=== PATIENT | male | born 1975 | race Caucasian/White ===

== ENCOUNTER 2021-10-02 15:45 | Inpatient (IN) | payer MEDICAID ==
[2021-10-02] MEDS ORDERED: LORazepam 1 MG Tab PO ONE ×3 (15:50→16:37)
--- NOTE | 2021-10-02 15:56 | EDM.PDOC ---
ED HPI GENERAL MEDICAL PROBLEM - General Chief Complaint: General Stated Complaint: MEDICAL VIA [facility] Time Seen by Provider: 10/02/21 15:45 Source of Information: Reports: Patient, EMS History Limitations: Reports: No Limitations - History of Present Illness INITIAL COMMENTS - FREE TEXT/NARRATIVE: 46 yo male is brought to the ER from [facility] after he developed a panic attack with hyperventilation as he was being discharged. No tx per EMS en route. Has been drinking a lot of water lately. Onset: Today, Sudden Onset Date: 10/02/21 Duration: Minutes: Location: Reports: Generalized Quality: Reports: Other (none) Severity: Moderate Improves with: Reports: Other (nothing tried) Worsens with: Reports: Other (unknown) Context: Reports: Other (See HPI) Associated Symptoms: Reports: Shortness of Breath, Other (anxiety) Treatments [employer]GER: Reports: Other (see below) (none) - Related Data Allergies Allergy/AdvReac Type Severity Reaction Status Date / Time fluoxetine AdvReac Other Verified 10/04/21 15:22 Home Meds: Home Meds lisinopriL [Lisinopril] 20 mg PO DAILY 10/02/21 [History] Past Medical History Cardiovascular History: Reports: Heart Murmur Gastrointestinal History: Reports: GERD Musculoskeletal History: Reports: Back Pain, Chronic Neurological History: Reports: Head Trauma Psychiatric History: Reports: Addiction, Hallucinations (Secondary alcohol) Endocrine/Metabolic History: Reports: Hypothyroidism ED ROS GENERAL - Review of Systems Review Of Systems: See Below Constitutional: Reports: No Symptoms HEENT: Reports: No Symptoms Respiratory: Reports: Shortness of Breath Cardiovascular: Reports: No Symptoms GI/Abdominal: Reports: No Symptoms : Reports: No Symptoms Musculoskeletal: Reports: No Symptoms Skin: Reports: No Symptoms Neurological: Reports: No Symptoms Psychiatric: Reports: Anxiety ED EXAM, GENERAL - Physical Exam Exam: See Below Exam Limited By: No Limitations General Appearance: Alert, WD/WN, Mild Distress Eye Exam: Bilateral Eye: Normal Inspection Ears: Normal External Exam, Normal Canal, Hearing Grossly Normal Ear Exam: Bilateral Ear: Auricle Normal, Canal Normal Nose: Normal Inspection, No Blood Throat/Mouth: Normal Inspection, Normal Lips, Normal Oropharynx, Normal Voice, No Airway Compromise Head: Atraumatic, Normocephalic Neck: Normal Inspection Respiratory/Chest: Lungs Clear, Normal Breath Sounds, No Accessory Muscle Use, Chest Non-Tender, Other (tachypnea) Cardiovascular: Regular Rate, Rhythm, No Edema GI/Abdominal: Normal Bowel Sounds, Soft, Non-Tender, No Distention. No: Distended Back Exam: Normal Inspection. No: CVA Tenderness (R), CVA Tenderness (L) Extremities: Normal Inspection, Normal Range of Motion, Non-Tender, No Pedal Edema Neurological: Alert, Oriented, CN II-XII Intact, Normal Cognition, No Motor/Sensory Deficits Psychiatric: Normal Affect, Normal Mood Skin Exam: Warm, Dry, Intact, Normal Color, No Rash #1 Interpretation EKG Date: 10/02/21 Time: 16:40 Rhythm: NSR Rate (Beats/Min): 89 P-Wave: Present ST-T: Normal Comparison: NA - No Prior EKG Course - Vital Signs Text/Narrative:: Dr. Barry called @ 1520h Last Recorded V/S: Last Vital Signs Temp 36.6 C 10/04/21 07:44 Pulse 60 10/04/21 07:44 Resp 12 10/04/21 07:44 BP 130/82 10/04/21 07:44 Pulse Ox 98 10/04/21 07:44 - Orders/Labs/Meds Labs: Laboratory Tests 10/02/21 10/02/21 10/02/21 Range/Units 16:25 16:25 16:25 WBC 9.2 (4.5-11.0) K/uL RBC 4.08 L (4.30-5.90) M/uL Hgb 12.8 (12.0-15.0) g/dL Hct 36.5 L (40.0-54.0) % MCV 90 (80-98) fL MCH 31 (27-31) pg MCHC 35 (32-36) % Plt Count 265 (150-400) K/uL VBG pH (7.350-7.450) Sodium 119 L* (140-148) mmol/L Potassium 3.7 (3.6-5.2) mmol/L Chloride 85 L (100-108) mmol/L Carbon Dioxide 16 L (21-32) mmol/L Anion Gap 21.7 H (5.0-14.0) mmol/L BUN 10 (7-18) mg/dL Creatinine 1.0 (0.8-1.3) mg/dL Est Cr Clr Drug Dosing 93.28 mL/min Estimated GFR (MDRD) > 60 (>60) Glucose 104 (74-106) mg/dL Lactic Acid (0.4-2.0) mmol/L Calcium 8.0 L (8.5-10.1) mg/dL Magnesium (1.8-2.4) mg/dL Total Bilirubin (0.2-1.0) mg/dL Direct Bilirubin (0.0-0.2) mg/dL Indirect Bilirubin AST (15-37) U/L ALT (12-78) U/L Alkaline Phosphatase (46-116) U/L Total Protein (6.4-8.2) g/dL Albumin (3.4-5.0) g/dL Globulin (2.3-3.5) g/dL Albumin/Globulin Ratio (1.2-2.2) Urine Color (YELLOW) Urine Appearance (CLEAR) Urine pH (5.0-8.0) Ur Specific [place] (1.008-1.030) Urine Protein (NEGATIVE) mg/dL Urine Glucose (UA) (NEGATIVE) mg/dL Urine Ketones (NEGATIVE) mg/dL Urine Occult Blood (NEGATIVE) Urine Nitrite (NEGATIVE) Urine Bilirubin (NEGATIVE) Urine Urobilinogen (0.2-1.0) EU/dL Ur Leukocyte Esterase (NEGATIVE) Urine RBC (0-5) Urine WBC (0-5) Ur Epithelial Cells Amorphous Sediment Urine Bacteria Urine Mucus Salicylates 0.7 L (2.0-20.0) mg/dL 10/02/21 10/02/21 10/02/21 Range/Units 16:25 16:25 16:25 WBC (4.5-11.0) K/uL RBC (4.30-5.90) M/uL Hgb (12.0-15.0) g/dL Hct (40.0-54.0) % MCV (80-98) fL MCH (27-31) pg MCHC (32-36) % Plt Count (150-400) K/uL VBG pH (7.350-7.450) Sodium (140-148) mmol/L Potassium (3.6-5.2) mmol/L Chloride (100-108) mmol/L Carbon Dioxide (21-32) mmol/L Anion Gap (5.0-14.0) mmol/L BUN (7-18) mg/dL Creatinine (0.8-1.3) mg/dL Est Cr Clr Drug Dosing mL/min Estimated GFR (MDRD) (>60) Glucose (74-106) mg/dL Lactic Acid 5.1 H (0.4-2.0) mmol/L Calcium (8.5-10.1) mg/dL Magnesium 0.8 L (1.8-2.4) mg/dL Total Bilirubin 0.4 D (0.2-1.0) mg/dL Direct Bilirubin 0.14 (0.0-0.2) mg/dL Indirect Bilirubin 0.26 AST 28 D (15-37) U/L ALT 37 (12-78) U/L Alkaline Phosphatase 53 (46-116) U/L Total Protein 6.9 (6.4-8.2) g/dL Albumin 4.1 (3.4-5.0) g/dL Globulin 2.8 (2.3-3.5) g/dL Albumin/Globulin Ratio 1.5 (1.2-2.2) Urine Color (YELLOW) Urine Appearance (CLEAR) Urine pH (5.0-8.0) Ur Specific [place] (1.008-1.030) Urine Protein (NEGATIVE) mg/dL Urine Glucose (UA) (NEGATIVE) mg/dL Urine Ketones (NEGATIVE) mg/dL Urine Occult Blood (NEGATIVE) Urine Nitrite (NEGATIVE) Urine Bilirubin (NEGATIVE) Urine Urobilinogen (0.2-1.0) EU/dL Ur Leukocyte Esterase (NEGATIVE) Urine RBC (0-5) Urine WBC (0-5) Ur Epithelial Cells Amorphous Sediment Urine Bacteria Urine Mucus Salicylates (2.0-20.0) mg/dL 10/02/21 10/02/21 Range/Units 16:36 17:31 WBC (4.5-11.0) K/uL RBC (4.30-5.90) M/uL Hgb (12.0-15.0) g/dL Hct (40.0-54.0) % MCV (80-98) fL MCH (27-31) pg MCHC (32-36) % Plt Count (150-400) K/uL VBG pH 7.585 H (7.350-7.450) Sodium (140-148) mmol/L Potassium (3.6-5.2) mmol/L Chloride (100-108) mmol/L Carbon Dioxide (21-32) mmol/L Anion Gap (5.0-14.0) mmol/L BUN (7-18) mg/dL Creatinine (0.8-1.3) mg/dL Est Cr Clr Drug Dosing mL/min Estimated GFR (MDRD) (>60) Glucose (74-106) mg/dL Lactic Acid (0.4-2.0) mmol/L Calcium (8.5-10.1) mg/dL Magnesium (1.8-2.4) mg/dL Total Bilirubin (0.2-1.0) mg/dL Direct Bilirubin (0.0-0.2) mg/dL Indirect Bilirubin AST (15-37) U/L ALT (12-78) U/L Alkaline Phosphatase (46-116) U/L Total Protein (6.4-8.2) g/dL Albumin (3.4-5.0) g/dL Globulin (2.3-3.5) g/dL Albumin/Globulin Ratio (1.2-2.2) Urine Color Yellow (YELLOW) Urine Appearance Clear (CLEAR) Urine pH 7.0 (5.0-8.0) Ur Specific [place] 1.020 (1.008-1.030) Urine Protein Negative (NEGATIVE) mg/dL Urine Glucose (UA) Negative (NEGATIVE) mg/dL Urine Ketones Trace H (NEGATIVE) mg/dL Urine Occult Blood Negative (NEGATIVE) Urine Nitrite Negative (NEGATIVE) Urine Bilirubin Negative (NEGATIVE) Urine Urobilinogen 0.2 (0.2-1.0) EU/dL Ur Leukocyte Esterase Negative (NEGATIVE) Urine RBC Not seen (0-5) Urine WBC Not seen (0-5) Ur Epithelial Cells Rare Amorphous Sediment Not seen Urine Bacteria Not seen Urine Mucus Not seen Salicylates (2.0-20.0) mg/dL Meds: Medications Discontinued Medications Generic Name Dose Route Start Last Admin Trade Name Freq PRN Reason Stop Dose Admin Acetaminophen 650 mg 10/02/21 19:40 10/03/21 09:20 Acetaminophen 325 Mg Tab PO 650 mg Q4H PRN Administration Pain (Mild 1-3)/fever Sodium Chloride 1,000 mls @ 1,000 mls/hr 10/02/21 16:48 10/02/21 17:05 Normal Saline IV 10/02/21 17:47 1,000 mls/hr .BOLUS ONE Administration Calcium Gluconate 2 gm/ Sodium 120 mls @ 100 mls/hr 10/02/21 16:51 10/02/21 17:27 Chloride IV 10/02/21 18:02 100 mls/hr ONETIME ONE Administration Magnesium Sulfate 2 gm/ Premix 50 mls @ 25 mls/hr 10/02/21 17:05 10/02/21 19:51 IV 10/02/21 19:04 25 mls/hr ONETIME ONE Administration Levetiracetam 1,000 mg/ Sodium 110 mls @ 400 mls/hr 10/02/21 17:41 10/02/21 17:52 Chloride IV 10/02/21 17:55 400 mls/hr ONETIME ONE Administration Sodium Chloride 100 mls @ 200 mls/hr 10/02/21 18:00 10/02/21 18:16 Sodium Chloride 3% IV 200 mls/hr ASDIRECTED LUPIS Administration Sodium Chloride 1,000 mls @ 15 mls/hr 10/02/21 19:40 Normal Saline IV ASDIRECTED LUPIS Magnesium Sulfate 2 gm/ Premix 50 mls @ 25 mls/hr 10/03/21 04:00 10/03/21 21:00 IV 10/03/21 23:59 25 mls/hr Q6H LUPIS Administration Levetiracetam 100 mls @ 400 mls/hr 10/03/21 06:00 10/03/21 06:27 Levetiracetam In Nacl (Iso-Os) IV 400 mls/hr Q12H LUPIS Administration Lorazepam 1 mg 10/02/21 15:50 10/02/21 15:57 Lorazepam 1 Mg Tab PO 10/02/21 15:51 1 mg ONETIME ONE Administration Lorazepam 1 mg 10/02/21 16:13 10/02/21 16:17 Lorazepam 1 Mg Tab PO 10/02/21 16:14 1 mg ONETIME ONE Administration Lorazepam 2 mg 10/02/21 16:37 10/02/21 16:45 Lorazepam 1 Mg Tab PO 10/02/21 16:38 2 mg ONETIME ONE Administration Lorazepam 0.5 mg 10/02/21 19:40 Lorazepam 2 Mg/Ml Sdv IVPUSH Q4H PRN Nausea/Vomiting Lorazepam 2 mg 10/02/21 19:40 Lorazepam 2 Mg/Ml Sdv IVPUSH Q1H PRN Seizures Magnesium Hydroxide 30 ml 10/02/21 19:40 Magnesium Hydroxide 400 Mg/5 Ml Susp 30 Ml Cup PO Q12H PRN Constipation Magnesium Oxide 800 mg 10/02/21 17:04 Magnesium Oxide 400 Mg Tab PO 10/02/21 17:05 ONETIME ONE Ondansetron HCl 4 mg 10/02/21 16:13 10/02/21 16:17 Ondansetron 4 Mg Tab.Dis PO 10/02/21 16:14 4 mg ONETIME ONE Administration Ondansetron HCl 4 mg 10/02/21 19:40 Ondansetron 4 Mg/2 Ml Sdv IV Q6H PRN Nausea/Vomiting Ondansetron HCl 4 mg 10/02/21 19:40 Ondansetron 4 Mg Tab.Dis PO Q6H PRN Nausea able to take PO Oxycodone HCl 5 - 10 mg 10/02/21 19:40 Oxycodone 5 Mg Tab PO Q4H PRN Pain Potassium Chloride 20 meq 10/02/21 17:05 Potassium Chloride 20 Meq Tab.Er PO 10/02/21 17:06 ONETIME ONE Senna/Docusate Sodium 1 tab 10/02/21 19:40 Docusate Sodium/Sennosides 50-8.6 Mg Tab PO BID PRN Constipation Departure - Departure Time of Disposition: 08:00 Disposition: Admitted As Inpatient 64 Condition: Poor Clinical Impression: Metabolic acidosis, Hypomagnesemia, Hyponatremia, Hypocalcemia, Hyperventilation - Discharge Information *PRESCRIPTION DRUG MONITORING PROGRAM REVIEWED*: Not Applicable *COPY OF PRESCRIPTION DRUG MONITORING REPORT IN PATIENT TYREE: Not Applicable
[2021-10-02] MEDS ORDERED: Ondansetron 4 MG Tab.DIS PO ONE (16:13)
[2021-10-02] MEDS ORDERED: Sodium Chloride 0.9% 1,000 ML IV ONE (16:48)
[2021-10-02] MEDS ORDERED: Calcium Gluconate 2 GM in Sodium Chloride 0.9% 100 ML IV ONE (16:51)
[2021-10-02] MEDS ORDERED: Magnesium Oxide 400 MG Tab PO ONE (17:04)
[2021-10-02] MEDS ORDERED: Magnesium Sulfate/Water 2 GM in Premix Bag 1 BAG IV ONE (17:05)
[2021-10-02] MEDS ORDERED: Potassium Chloride 20 MEQ Tab.ER PO ONE (17:05)
[2021-10-02] MEDS ORDERED: levETIRAcetam 1,000 MG in Sodium Chloride 0.9% 100 ML IV ONE (17:41)
[2021-10-02] MEDS ORDERED: Sodium Chloride 3% 100 ML IV SCH (18:00)
--- NOTE | 2021-10-02 18:38 | PCM.HP.2 ---
H&P History of Present Illness - General Date of Service: 10/02/21 Admit Problem/Dx: Admission Diagnosis/Problem Admission Diagnosis/Problem Hyponatremia Source of Information: Patient, Provider History Limitations: Reports: Altered Mental Status - History of Present Illness Initial Comments - Free Text/Narative: CC: Shaking spells HPI: Deja presents to the emergency room today by ambulance from [facility]. The plan is for him to be discharged today and as they were getting ready to send him out he started having generalized shaking spells and was acting abnormal. An ambulance was summoned and brought him here to the emergency room. While he has been in the emergency room he has demonstrated a tonic-clonic like shaking of both of his legs from the waist down as well as his arms from the elbow down. He is able to talk but is confused and is able to answer only simple questions. History is difficult to gather because he keeps saying he cannot remember. He does remember being in [facility] for detox. He is not sure how long he was at [facility] for treatment. He is able to tell me that he has had seizures as part of his alcohol withdrawal in the past but they seem different than this. He does not currently have a headache. He does feel like he has to work hard to catch his breath. He feels nauseated. He thinks his vision is normal. He has received several doses of oral lorazepam without any change in his shaking. He reports that he drinks roughly 64 ounces of water a day. He reports to me that he has not taken any illicit drugs and has not consumed any ethanol or antifreeze. Work-up in the emergency room revealed severe hyponatremia at 119 as well as an anion gap metabolic acidosis with normal renal function. He also has a low magnesium and calcium. His lactic acid is elevated at 5.1, probably secondary to his seizures. He has received several doses of oral lorazepam without any change in his shaking. I did give him 1000 mg of Keppra and his tremors have decreased significantly. He is receiving hypertonic saline now. - Related Data Allergies/Adverse Reactions: Allergies Allergy/AdvReac Type Severity Reaction Status Date / Time No Known Allergies Allergy Verified 10/02/21 16:03 Home Medications: Home Meds FLUoxetine HCl [Fluoxetine HCl] 40 mg PO DAILY 10/02/21 [History] lisinopriL [Lisinopril] 0 mg PO DAILY 10/02/21 [History] Past Medical History Cardiovascular History: Reports: Heart Murmur Gastrointestinal History: Reports: GERD Musculoskeletal History: Reports: Back Pain, Chronic Neurological History: Reports: Head Trauma Psychiatric History: Reports: Addiction, Hallucinations Endocrine/Metabolic History: Reports: Hypothyroidism Social & Family History - Family History Cardiac: Reports: CAD - Tobacco Use Tobacco Use Status *Q: Never Tobacco User - Caffeine Use Caffeine Use: Reports: Coffee - Alcohol Use Days Per Week of Alcohol Use: 7 Number of Drinks Per Day: 10 Total Drinks Per Week: 70 - Recreational Drug Use Recreational Drug Use: No H&P Review of Systems - Review of Systems: Review Of Systems: Unable To Obtain Reason Not Obtained: pt having lots of trouble recalling recent events Exam - Exam Exam: See Below - Vital Signs Vital Signs: Last Vital Signs Temp 35.8 C L 10/02/21 16:00 Pulse 89 10/02/21 17:01 Resp 28 H 10/02/21 16:00 BP 174/94 H 10/02/21 17:01 Pulse Ox 99 10/02/21 16:00 Weight: 74.843 kg - Exam Quality Assessment: No: Supplemental Oxygen General: Alert, Oriented, Cooperative, Mild Distress HEENT: Conjunctiva Clear. No: Mucosa Moist & [place], Scleral Icterus Neck: Supple, Trachea Midline Lungs: Clear to Auscultation, Normal Respiratory Effort Cardiovascular: Regular Rate, Regular Rhythm GI/Abdominal Exam: Normal Bowel Sounds, Soft, Non-Tender, No Distention Extremities: No Pedal Edema. No: Increased Warmth Peripheral Pulses: 2+: Dorsalis Pedis (L), Dorsalis Pedis (R) Skin: Warm, Dry. No: Rash Neuro Extensive - Mental Status: Alert, Disorientation to Place, Slow Response to Commands. No: Oriented x3, Normal Cognition Neuro Extensive - Motor, Sensory, Reflexes: Abnormal Motor (tonic clonic shaking of both arms and both arms below the elbow ), Tremor (flexors and extensors of legs all rigid, forearm flexors rigid). No: Dysarthria Psychiatric: Alert, Normal Affect, Anxious. No: Agitated - Patient Data Lab Results Last 24 hrs: Laboratory Results - last 24 hr 10/02/21 10/02/21 10/02/21 Range/Units 16:25 16:25 16:25 WBC 9.2 (4.5-11.0) K/uL RBC 4.08 L (4.30-5.90) M/uL Hgb 12.8 (12.0-15.0) g/dL Hct 36.5 L (40.0-54.0) % MCV 90 (80-98) fL MCH 31 (27-31) pg MCHC 35 (32-36) % Plt Count 265 (150-400) K/uL VBG pH (7.350-7.450) Sodium 119 L* (140-148) mmol/L Potassium 3.7 (3.6-5.2) mmol/L Chloride 85 L (100-108) mmol/L Carbon Dioxide 16 L (21-32) mmol/L Anion Gap 21.7 H (5.0-14.0) mmol/L BUN 10 (7-18) mg/dL Creatinine 1.0 (0.8-1.3) mg/dL Est Cr Clr Drug Dosing 93.28 mL/min Estimated GFR (MDRD) > 60 (>60) Glucose 104 (74-106) mg/dL Lactic Acid (0.4-2.0) mmol/L Calcium 8.0 L (8.5-10.1) mg/dL Magnesium (1.8-2.4) mg/dL Total Bilirubin (0.2-1.0) mg/dL Direct Bilirubin (0.0-0.2) mg/dL Indirect Bilirubin AST (15-37) U/L ALT (12-78) U/L Alkaline Phosphatase (46-116) U/L Total Protein (6.4-8.2) g/dL Albumin (3.4-5.0) g/dL Globulin (2.3-3.5) g/dL Albumin/Globulin Ratio (1.2-2.2) Urine Color (YELLOW) Urine Appearance (CLEAR) Urine pH (5.0-8.0) Ur Specific [place] (1.008-1.030) Urine Protein (NEGATIVE) mg/dL Urine Glucose (UA) (NEGATIVE) mg/dL Urine Ketones (NEGATIVE) mg/dL Urine Occult Blood (NEGATIVE) Urine Nitrite (NEGATIVE) Urine Bilirubin (NEGATIVE) Urine Urobilinogen (0.2-1.0) EU/dL Ur Leukocyte Esterase (NEGATIVE) Urine RBC (0-5) Urine WBC (0-5) Ur Epithelial Cells Amorphous Sediment Urine Bacteria Urine Mucus Salicylates 0.7 L (2.0-20.0) mg/dL 10/02/21 10/02/21 10/02/21 Range/Units 16:25 16:25 16:25 WBC (4.5-11.0) K/uL RBC (4.30-5.90) M/uL Hgb (12.0-15.0) g/dL Hct (40.0-54.0) % MCV (80-98) fL MCH (27-31) pg MCHC (32-36) % Plt Count (150-400) K/uL VBG pH (7.350-7.450) Sodium (140-148) mmol/L Potassium (3.6-5.2) mmol/L Chloride (100-108) mmol/L Carbon Dioxide (21-32) mmol/L Anion Gap (5.0-14.0) mmol/L BUN (7-18) mg/dL Creatinine (0.8-1.3) mg/dL Est Cr Clr Drug Dosing mL/min Estimated GFR (MDRD) (>60) Glucose (74-106) mg/dL Lactic Acid 5.1 H (0.4-2.0) mmol/L Calcium (8.5-10.1) mg/dL Magnesium 0.8 L (1.8-2.4) mg/dL Total Bilirubin 0.4 D (0.2-1.0) mg/dL Direct Bilirubin 0.14 (0.0-0.2) mg/dL Indirect Bilirubin 0.26 AST 28 D (15-37) U/L ALT 37 (12-78) U/L Alkaline Phosphatase 53 (46-116) U/L Total Protein 6.9 (6.4-8.2) g/dL Albumin 4.1 (3.4-5.0) g/dL Globulin 2.8 (2.3-3.5) g/dL Albumin/Globulin Ratio 1.5 (1.2-2.2) Urine Color (YELLOW) Urine Appearance (CLEAR) Urine pH (5.0-8.0) Ur Specific [place] (1.008-1.030) Urine Protein (NEGATIVE) mg/dL Urine Glucose (UA) (NEGATIVE) mg/dL Urine Ketones (NEGATIVE) mg/dL Urine Occult Blood (NEGATIVE) Urine Nitrite (NEGATIVE) Urine Bilirubin (NEGATIVE) Urine Urobilinogen (0.2-1.0) EU/dL Ur Leukocyte Esterase (NEGATIVE) Urine RBC (0-5) Urine WBC (0-5) Ur Epithelial Cells Amorphous Sediment Urine Bacteria Urine Mucus Salicylates (2.0-20.0) mg/dL 10/02/21 10/02/21 Range/Units 16:36 17:31 WBC (4.5-11.0) K/uL RBC (4.30-5.90) M/uL Hgb (12.0-15.0) g/dL Hct (40.0-54.0) % MCV (80-98) fL MCH (27-31) pg MCHC (32-36) % Plt Count (150-400) K/uL VBG pH 7.585 H (7.350-7.450) Sodium (140-148) mmol/L Potassium (3.6-5.2) mmol/L Chloride (100-108) mmol/L Carbon Dioxide (21-32) mmol/L Anion Gap (5.0-14.0) mmol/L BUN (7-18) mg/dL Creatinine (0.8-1.3) mg/dL Est Cr Clr Drug Dosing mL/min Estimated GFR (MDRD) (>60) Glucose (74-106) mg/dL Lactic Acid (0.4-2.0) mmol/L Calcium (8.5-10.1) mg/dL Magnesium (1.8-2.4) mg/dL Total Bilirubin (0.2-1.0) mg/dL Direct Bilirubin (0.0-0.2) mg/dL Indirect Bilirubin AST (15-37) U/L ALT (12-78) U/L Alkaline Phosphatase (46-116) U/L Total Protein (6.4-8.2) g/dL Albumin (3.4-5.0) g/dL Globulin (2.3-3.5) g/dL Albumin/Globulin Ratio (1.2-2.2) Urine Color Yellow (YELLOW) Urine Appearance Clear (CLEAR) Urine pH 7.0 (5.0-8.0) Ur Specific [place] 1.020 (1.008-1.030) Urine Protein Negative (NEGATIVE) mg/dL Urine Glucose (UA) Negative (NEGATIVE) mg/dL Urine Ketones Trace H (NEGATIVE) mg/dL Urine Occult Blood Negative (NEGATIVE) Urine Nitrite Negative (NEGATIVE) Urine Bilirubin Negative (NEGATIVE) Urine Urobilinogen 0.2 (0.2-1.0) EU/dL Ur Leukocyte Esterase Negative (NEGATIVE) Urine RBC Not seen (0-5) Urine WBC Not seen (0-5) Ur Epithelial Cells Rare Amorphous Sediment Not seen Urine Bacteria Not seen Urine Mucus Not seen Salicylates (2.0-20.0) mg/dL Result Diagrams: 10/02/21 16:25 10/02/21 16:25 Sepsis Event Note - Evaluation Sepsis Screening Result: No Definite Risk - Focused Exam Vital Signs: Vital Signs Temp Pulse Resp BP Pulse Ox 10/02/21 17:01 89 174/94 H 10/02/21 16:18 87 174/99 H 10/02/21 16:00 35.8 C L 83 28 H 160/90 H 99 10/02/21 15:48 35.8 C L 83 16 160/90 H 99 *Q Meaningful Use (ADM) - VTE Risk Assess *Q Each Risk Factor Represents 1 Point: Age 41 - 59 years Total Score 1 Point Risk Factors: 1 Each Risk Factor Represents 2 Points: None Total Score 2 Point Risk Factors: 0 Each Risk Factor Represents 3 Points: None Total Score 3 Point Risk Factors: 0 Each Risk Factor Represents 5 Points: None Total Score 5 Point Risk Factors: 0 Venous Thromboembolism Risk Factor Score *Q: 1 - Problem List (1) Hyponatremia SNOMED Code(s): 92011697 ICD Code: E87.1 - HYPO-OSMOLALITY AND HYPONATREMIA Status: Acute Current Visit: Yes (2) Metabolic acidosis SNOMED Code(s): 17144301 ICD Code: E87.2 - ACIDOSIS Status: Acute Current Visit: Yes (3) Seizures SNOMED Code(s): 35899596 ICD Code: R56.9 - UNSPECIFIED CONVULSIONS Status: Acute Current Visit: Yes (4) Alcohol dependence SNOMED Code(s): 02221608 ICD Code: F10.20 - ALCOHOL DEPENDENCE, UNCOMPLICATED Status: Acute Current Visit: Yes Qualifiers: Substance use status: unspecified alcohol-induced disorder Qualified Code(s): F10.29 - Alcohol dependence with unspecified alcohol-induced disorder Problem List Initiated/Reviewed/Updated: Yes Orders Last 24hrs: Active Orders 24 hr Category Date Time Status Patient Status Manage Transfer [TRANSFER] Routine ADT 10/02/21 18:24 Ordered EKG Documentation Completion [RC] ASDIRECTED Care 10/02/21 16:28 Active CORONAVIRUS COVID-19 RAPID [MOLEC] Stat Lab 10/02/21 18:15 Ordered Magnesium Sulfate/Water [Magnesium Sulfate in Water 2 Med 10/02/21 17:05 Active GM/50 ML] 2 gm Premix Bag 1 bag IV ONETIME Sodium Chloride 3% 100 ml Med 10/02/21 18:00 Active IV ASDIRECTED Resuscitation Status Routine Resus Stat 10/02/21 18:25 Ordered EKG 12 Lead [EK] Routine Ther 10/02/21 16:28 Ordered Medication Orders Magnesium Sulfate 2 gm/ Premix 50 mls @ 25 mls/hr IV ONETIME ONE Stop: 10/02/21 19:04 Sodium Chloride (Sodium Chloride 3%) 100 mls @ 200 mls/hr IV ASDIRECTED LUPIS Last Admin: 10/02/21 18:16 Dose: 200 mls/hr Documented by: CAROLINA Assessment/Plan Comment:: ASSESSMENT AND PLAN - Severe hyponatremia-appears to be euvolemic. No history of polydipsia. He is on an SSRI and this could be the cause of his difficulties with possible contribution from his alcohol dependence. He has been back on his SSRI for about a week and I think this timing could fit since he had been doing well at detox prior to this afternoon. He denies any ingestions. Urine drug screen at the detox facility was unremarkable. I suspect that the low sodium was caused by his SSRI and this led to the seizures as discussed below. -Hypertonic saline 100 mL bolus now -Repeat sodium in 2 hours and every 4 hours thereafter, consider additional hypertonic saline bolus if needed -Recheck BMP in the morning Anion gap metabolic acidosis-probably related to the seizures and lactic acidosis. He has received 1 L of fluid. I would anticipate this will decrease after his seizures resolve. -Management as above and labs in the morning Seizures-probably secondary to low sodium. History of seizures with alcohol withdrawal but I think this is a separate issue. -Seizure precautions -Keppra every 12 hours -Management of low sodium as above Alcohol dependence recent detox and partial treatment at [facility]. He is more than a week out from his last drink and should be through the DTs. -Outpatient follow-up Maintenance issues - -DVT prophylaxis-mechanical -GI prophylaxis-not indicated -Nutrition-regular -Linda catheter-not indicated CODE STATUS -full code Admission justification -this patient will be admitted for inpatient services and is medically appropriate meeting medical necessity for inpatient admission as outlined in my documentation. I reasonably expect the patient will require inpatient services that span a period time over 2 midnights. I reasonably expect this patient to be discharged or transferred within 96 hours after admission to the [facility]. Disposition -I anticipate discharge home after the hospital stay Primary care physician -unknown Kayode Barry M.D. - Mortality Measure Prognosis:: Good
[2021-10-02] MEDS ORDERED: Magnesium Hydroxide 400 MG/5 ML Susp 30 ML Cup PO PRN (19:40)
[2021-10-02] MEDS ORDERED: LORazepam 2 MG/ML SDV IVPUSH PRN ×2 (19:40)
[2021-10-02] MEDS ORDERED: Acetaminophen 325 MG Tab PO PRN (19:40)
[2021-10-02] MEDS ORDERED: oxyCODONE 5 MG Tab PO PRN (19:40)
[2021-10-02] MEDS ORDERED: Ondansetron 4 MG Tab.DIS PO PRN (19:40)
[2021-10-02] MEDS ORDERED: Ondansetron 4 MG/2 ML SDV IV PRN (19:40)
[2021-10-02] MEDS ORDERED: Sodium Chloride 0.9% 1,000 ML IV SCH (19:40)
[2021-10-03] MEDS: Magnesium Sulfate/Water 2 GM in Premix Bag 1 BAG IV SCH ×4 (04:11→21:00)
[2021-10-03] MEDS ORDERED: SODIUM CHLORIDE 0.9% IV SCH (06:00)
[2021-10-03] MEDS ORDERED: LEVETIRACETAM IV SCH (06:00)
[2021-10-03] MEDS ORDERED: levETIRAcetam in NaCl (iso-os) 100 ML IV SCH (06:00)
--- NOTE | 2021-10-03 09:56 | PCM.PN ---
- General Info Date of Service: 10/03/21 Subjective Update: No acute events overnight. No more seizure activity. The tremors have all resolved. Patient is alert and oriented and interactive today. He has been up and walking in the hallways. Sodium level has risen steadily since yesterday at the time of admission. No headache. No alcohol withdrawal. He is hoping he can get back into a treatment program and very much wants to get away from his alcohol dependence. - Review of Systems General: Denies: Fever Neurological: Reports: Dizziness. Denies: Confusion, Seizure - Patient Data Vitals - Most Recent: Last Vital Signs Temp 36.6 C 10/03/21 08:00 Pulse 79 10/03/21 08:00 Resp 14 10/03/21 08:00 BP 111/68 10/03/21 08:00 Pulse Ox 99 10/03/21 08:00 Weight - Most Recent: 80.739 kg I&O - Last 24 Hours: Intake & Output 10/02/21 10/03/21 10/03/21 22:59 06:59 14:59 Intake Total 331 50 Output Total 2150 3725 500 Balance -6330 -3374 -450 Lab Results Last 24 Hours: Laboratory Results - last 24 hr 10/02/21 10/02/21 10/02/21 Range/Units 16:25 16:25 16:25 WBC 9.2 (4.5-11.0) K/uL RBC 4.08 L (4.30-5.90) M/uL Hgb 12.8 (12.0-15.0) g/dL Hct 36.5 L (40.0-54.0) % MCV 90 (80-98) fL MCH 31 (27-31) pg MCHC 35 (32-36) % Plt Count 265 (150-400) K/uL VBG pH (7.350-7.450) Sodium 119 L* (140-148) mmol/L Potassium 3.7 (3.6-5.2) mmol/L Chloride 85 L (100-108) mmol/L Carbon Dioxide 16 L (21-32) mmol/L Anion Gap 21.7 H (5.0-14.0) mmol/L BUN 10 (7-18) mg/dL Creatinine 1.0 (0.8-1.3) mg/dL Est Cr Clr Drug Dosing 93.28 mL/min Estimated GFR (MDRD) > 60 (>60) Glucose 104 (74-106) mg/dL Lactic Acid (0.4-2.0) mmol/L Calcium 8.0 L (8.5-10.1) mg/dL Magnesium (1.8-2.4) mg/dL Total Bilirubin (0.2-1.0) mg/dL Direct Bilirubin (0.0-0.2) mg/dL Indirect Bilirubin AST (15-37) U/L ALT (12-78) U/L Alkaline Phosphatase (46-116) U/L Total Protein (6.4-8.2) g/dL Albumin (3.4-5.0) g/dL Globulin (2.3-3.5) g/dL Albumin/Globulin Ratio (1.2-2.2) Urine Color (YELLOW) Urine Appearance (CLEAR) Urine pH (5.0-8.0) Ur Specific [place] (1.008-1.030) Urine Protein (NEGATIVE) mg/dL Urine Glucose (UA) (NEGATIVE) mg/dL Urine Ketones (NEGATIVE) mg/dL Urine Occult Blood (NEGATIVE) Urine Nitrite (NEGATIVE) Urine Bilirubin (NEGATIVE) Urine Urobilinogen (0.2-1.0) EU/dL Ur Leukocyte Esterase (NEGATIVE) Urine RBC (0-5) Urine WBC (0-5) Ur Epithelial Cells Amorphous Sediment Urine Bacteria Urine Mucus Salicylates 0.7 L (2.0-20.0) mg/dL SARS CoV-2 RNA Rapid PATY 10/02/21 10/02/21 10/02/21 Range/Units 16:25 16:25 16:25 WBC (4.5-11.0) K/uL RBC (4.30-5.90) M/uL Hgb (12.0-15.0) g/dL Hct (40.0-54.0) % MCV (80-98) fL MCH (27-31) pg MCHC (32-36) % Plt Count (150-400) K/uL VBG pH (7.350-7.450) Sodium (140-148) mmol/L Potassium (3.6-5.2) mmol/L Chloride (100-108) mmol/L Carbon Dioxide (21-32) mmol/L Anion Gap (5.0-14.0) mmol/L BUN (7-18) mg/dL Creatinine (0.8-1.3) mg/dL Est Cr Clr Drug Dosing mL/min Estimated GFR (MDRD) (>60) Glucose (74-106) mg/dL Lactic Acid 5.1 H (0.4-2.0) mmol/L Calcium (8.5-10.1) mg/dL Magnesium 0.8 L (1.8-2.4) mg/dL Total Bilirubin 0.4 D (0.2-1.0) mg/dL Direct Bilirubin 0.14 (0.0-0.2) mg/dL Indirect Bilirubin 0.26 AST 28 D (15-37) U/L ALT 37 (12-78) U/L Alkaline Phosphatase 53 (46-116) U/L Total Protein 6.9 (6.4-8.2) g/dL Albumin 4.1 (3.4-5.0) g/dL Globulin 2.8 (2.3-3.5) g/dL Albumin/Globulin Ratio 1.5 (1.2-2.2) Urine Color (YELLOW) Urine Appearance (CLEAR) Urine pH (5.0-8.0) Ur Specific [place] (1.008-1.030) Urine Protein (NEGATIVE) mg/dL Urine Glucose (UA) (NEGATIVE) mg/dL Urine Ketones (NEGATIVE) mg/dL Urine Occult Blood (NEGATIVE) Urine Nitrite (NEGATIVE) Urine Bilirubin (NEGATIVE) Urine Urobilinogen (0.2-1.0) EU/dL Ur Leukocyte Esterase (NEGATIVE) Urine RBC (0-5) Urine WBC (0-5) Ur Epithelial Cells Amorphous Sediment Urine Bacteria Urine Mucus Salicylates (2.0-20.0) mg/dL SARS CoV-2 RNA Rapid PATY 10/02/21 10/02/21 10/02/21 Range/Units 16:36 17:31 18:35 WBC (4.5-11.0) K/uL RBC (4.30-5.90) M/uL Hgb (12.0-15.0) g/dL Hct (40.0-54.0) % MCV (80-98) fL MCH (27-31) pg MCHC (32-36) % Plt Count (150-400) K/uL VBG pH 7.585 H (7.350-7.450) Sodium (140-148) mmol/L Potassium (3.6-5.2) mmol/L Chloride (100-108) mmol/L Carbon Dioxide (21-32) mmol/L Anion Gap (5.0-14.0) mmol/L BUN (7-18) mg/dL Creatinine (0.8-1.3) mg/dL Est Cr Clr Drug Dosing mL/min Estimated GFR (MDRD) (>60) Glucose (74-106) mg/dL Lactic Acid (0.4-2.0) mmol/L Calcium (8.5-10.1) mg/dL Magnesium (1.8-2.4) mg/dL Total Bilirubin (0.2-1.0) mg/dL Direct Bilirubin (0.0-0.2) mg/dL Indirect Bilirubin AST (15-37) U/L ALT (12-78) U/L Alkaline Phosphatase (46-116) U/L Total Protein (6.4-8.2) g/dL Albumin (3.4-5.0) g/dL Globulin (2.3-3.5) g/dL Albumin/Globulin Ratio (1.2-2.2) Urine Color Yellow (YELLOW) Urine Appearance Clear (CLEAR) Urine pH 7.0 (5.0-8.0) Ur Specific [place] 1.020 (1.008-1.030) Urine Protein Negative (NEGATIVE) mg/dL Urine Glucose (UA) Negative (NEGATIVE) mg/dL Urine Ketones Trace H (NEGATIVE) mg/dL Urine Occult Blood Negative (NEGATIVE) Urine Nitrite Negative (NEGATIVE) Urine Bilirubin Negative (NEGATIVE) Urine Urobilinogen 0.2 (0.2-1.0) EU/dL Ur Leukocyte Esterase Negative (NEGATIVE) Urine RBC Not seen (0-5) Urine WBC Not seen (0-5) Ur Epithelial Cells Rare Amorphous Sediment Not seen Urine Bacteria Not seen Urine Mucus Not seen Salicylates (2.0-20.0) mg/dL SARS CoV-2 RNA Rapid PATY Negative 10/02/21 10/02/21 10/03/21 Range/Units 21:03 21:03 01:11 WBC (4.5-11.0) K/uL RBC (4.30-5.90) M/uL Hgb (12.0-15.0) g/dL Hct (40.0-54.0) % MCV (80-98) fL MCH (27-31) pg MCHC (32-36) % Plt Count (150-400) K/uL VBG pH (7.350-7.450) Sodium 126 L 132 L (140-148) mmol/L Potassium (3.6-5.2) mmol/L Chloride (100-108) mmol/L Carbon Dioxide (21-32) mmol/L Anion Gap (5.0-14.0) mmol/L BUN (7-18) mg/dL Creatinine (0.8-1.3) mg/dL Est Cr Clr Drug Dosing mL/min Estimated GFR (MDRD) (>60) Glucose (74-106) mg/dL Lactic Acid 1.0 (0.4-2.0) mmol/L Calcium (8.5-10.1) mg/dL Magnesium (1.8-2.4) mg/dL Total Bilirubin (0.2-1.0) mg/dL Direct Bilirubin (0.0-0.2) mg/dL Indirect Bilirubin AST (15-37) U/L ALT (12-78) U/L Alkaline Phosphatase (46-116) U/L Total Protein (6.4-8.2) g/dL Albumin (3.4-5.0) g/dL Globulin (2.3-3.5) g/dL Albumin/Globulin Ratio (1.2-2.2) Urine Color (YELLOW) Urine Appearance (CLEAR) Urine pH (5.0-8.0) Ur Specific [place] (1.008-1.030) Urine Protein (NEGATIVE) mg/dL Urine Glucose (UA) (NEGATIVE) mg/dL Urine Ketones (NEGATIVE) mg/dL Urine Occult Blood (NEGATIVE) Urine Nitrite (NEGATIVE) Urine Bilirubin (NEGATIVE) Urine Urobilinogen (0.2-1.0) EU/dL Ur Leukocyte Esterase (NEGATIVE) Urine RBC (0-5) Urine WBC (0-5) Ur Epithelial Cells Amorphous Sediment Urine Bacteria Urine Mucus Salicylates (2.0-20.0) mg/dL SARS CoV-2 RNA Rapid PATY 10/03/21 Range/Units 06:05 WBC (4.5-11.0) K/uL RBC (4.30-5.90) M/uL Hgb (12.0-15.0) g/dL Hct (40.0-54.0) % MCV (80-98) fL MCH (27-31) pg MCHC (32-36) % Plt Count (150-400) K/uL VBG pH (7.350-7.450) Sodium 134 L (140-148) mmol/L Potassium 4.4 (3.6-5.2) mmol/L Chloride 100 (100-108) mmol/L Carbon Dioxide 27 (21-32) mmol/L Anion Gap 11.4 (5.0-14.0) mmol/L BUN 5 L (7-18) mg/dL Creatinine 0.7 L (0.8-1.3) mg/dL Est Cr Clr Drug Dosing 133.25 mL/min Estimated GFR (MDRD) > 60 (>60) Glucose 101 (74-106) mg/dL Lactic Acid (0.4-2.0) mmol/L Calcium 9.0 (8.5-10.1) mg/dL Magnesium (1.8-2.4) mg/dL Total Bilirubin (0.2-1.0) mg/dL Direct Bilirubin (0.0-0.2) mg/dL Indirect Bilirubin AST (15-37) U/L ALT (12-78) U/L Alkaline Phosphatase (46-116) U/L Total Protein (6.4-8.2) g/dL Albumin (3.4-5.0) g/dL Globulin (2.3-3.5) g/dL Albumin/Globulin Ratio (1.2-2.2) Urine Color (YELLOW) Urine Appearance (CLEAR) Urine pH (5.0-8.0) Ur Specific [place] (1.008-1.030) Urine Protein (NEGATIVE) mg/dL Urine Glucose (UA) (NEGATIVE) mg/dL Urine Ketones (NEGATIVE) mg/dL Urine Occult Blood (NEGATIVE) Urine Nitrite (NEGATIVE) Urine Bilirubin (NEGATIVE) Urine Urobilinogen (0.2-1.0) EU/dL Ur Leukocyte Esterase (NEGATIVE) Urine RBC (0-5) Urine WBC (0-5) Ur Epithelial Cells Amorphous Sediment Urine Bacteria Urine Mucus Salicylates (2.0-20.0) mg/dL SARS CoV-2 RNA Rapid PATY Med Orders - Current: Current Medications Acetaminophen (Acetaminophen 325 Mg Tab) 650 mg PO Q4H PRN PRN Reason: Pain (Mild 1-3)/fever Last Admin: 10/03/21 09:20 Dose: 650 mg Documented by: Sodium Chloride (Normal Saline) 1,000 mls @ 15 mls/hr IV ASDIRECTED LUPIS Magnesium Sulfate 2 gm/ Premix 50 mls @ 25 mls/hr IV Q6H [facility] Stop: 10/03/21 23:59 Last Admin: 10/03/21 09:14 Dose: 25 mls/hr Documented by: Levetiracetam (Levetiracetam In Nacl (Iso-Os)) 100 mls @ 400 mls/hr IV Q12H [facility] Last Admin: 10/03/21 06:27 Dose: 400 mls/hr Documented by: Lorazepam (Lorazepam 2 Mg/Ml Sdv) 0.5 mg IVPUSH Q4H PRN PRN Reason: Nausea/Vomiting Lorazepam (Lorazepam 2 Mg/Ml Sdv) 2 mg IVPUSH Q1H PRN PRN Reason: Seizures Magnesium Hydroxide (Magnesium Hydroxide 400 Mg/5 Ml Susp 30 Ml Cup) 30 ml PO Q12H PRN PRN Reason: Constipation Ondansetron HCl (Ondansetron 4 Mg/2 Ml Sdv) 4 mg IV Q6H PRN PRN Reason: Nausea/Vomiting Ondansetron HCl (Ondansetron 4 Mg Tab.Dis) 4 mg PO Q6H PRN PRN Reason: Nausea able to take PO Oxycodone HCl (Oxycodone 5 Mg Tab) 5 - 10 mg PO Q4H PRN PRN Reason: Pain Senna/Docusate Sodium (Docusate Sodium/Sennosides 50-8.6 Mg Tab) 1 tab PO BID PRN PRN Reason: Constipation Discontinued Medications Sodium Chloride (Normal Saline) 1,000 mls @ 1,000 mls/hr IV .BOLUS ONE Stop: 10/02/21 17:47 Last Admin: 10/02/21 17:05 Dose: 1,000 mls/hr Documented by: Calcium Gluconate 2 gm/ Sodium (Chloride) 120 mls @ 100 mls/hr IV ONETIME ONE Stop: 10/02/21 18:02 Last Admin: 10/02/21 17:27 Dose: 100 mls/hr Documented by: Magnesium Sulfate 2 gm/ Premix 50 mls @ 25 mls/hr IV ONETIME ONE Stop: 10/02/21 19:04 Last Admin: 10/02/21 19:51 Dose: 25 mls/hr Documented by: Levetiracetam 1,000 mg/ Sodium (Chloride) 110 mls @ 400 mls/hr IV ONETIME ONE Stop: 10/02/21 17:55 Last Admin: 10/02/21 17:52 Dose: 400 mls/hr Documented by: Sodium Chloride (Sodium Chloride 3%) 100 mls @ 200 mls/hr IV ASDIRECTED LUPIS Last Admin: 10/02/21 18:16 Dose: 200 mls/hr Documented by: Levetiracetam 1 mg/ Sodium (Chloride) 100.01 mls @ 400 mls/hr IV Q12H [facility] Lorazepam (Lorazepam 1 Mg Tab) 1 mg PO ONETIME ONE Stop: 10/02/21 15:51 Last Admin: 10/02/21 15:57 Dose: 1 mg Documented by: Lorazepam (Lorazepam 1 Mg Tab) 1 mg PO ONETIME ONE Stop: 10/02/21 16:14 Last Admin: 10/02/21 16:17 Dose: 1 mg Documented by: Lorazepam (Lorazepam 1 Mg Tab) 2 mg PO ONETIME ONE Stop: 10/02/21 16:38 Last Admin: 10/02/21 16:45 Dose: 2 mg Documented by: Magnesium Oxide (Magnesium Oxide 400 Mg Tab) 800 mg PO ONETIME ONE Stop: 10/02/21 17:05 Ondansetron HCl (Ondansetron 4 Mg Tab.Dis) 4 mg PO ONETIME ONE Stop: 10/02/21 16:14 Last Admin: 10/02/21 16:17 Dose: 4 mg Documented by: Potassium Chloride (Potassium Chloride 20 Meq Tab.Er) 20 meq PO ONETIME ONE Stop: 10/02/21 17:06 - Exam Quality Assessment: No: Supplemental Oxygen General: Alert, Oriented, Cooperative, No Acute Distress Lungs: Normal Respiratory Effort Cardiovascular: Regular Rate, Regular Rhythm GI/Abdominal Exam: Soft, No Distention Extremities: No Pedal Edema Psy/Mental Status: Alert, Normal Affect. No: Withdrawal Symptoms - Patient Data Lab Results Last 24 hrs: Laboratory Results - last 24 hr 10/02/21 10/02/21 10/02/21 Range/Units 16:25 16:25 16:25 WBC 9.2 (4.5-11.0) K/uL RBC 4.08 L (4.30-5.90) M/uL Hgb 12.8 (12.0-15.0) g/dL Hct 36.5 L (40.0-54.0) % MCV 90 (80-98) fL MCH 31 (27-31) pg MCHC 35 (32-36) % Plt Count 265 (150-400) K/uL VBG pH (7.350-7.450) Sodium 119 L* (140-148) mmol/L Potassium 3.7 (3.6-5.2) mmol/L Chloride 85 L (100-108) mmol/L Carbon Dioxide 16 L (21-32) mmol/L Anion Gap 21.7 H (5.0-14.0) mmol/L BUN 10 (7-18) mg/dL Creatinine 1.0 (0.8-1.3) mg/dL Est Cr Clr Drug Dosing 93.28 mL/min Estimated GFR (MDRD) > 60 (>60) Glucose 104 (74-106) mg/dL Lactic Acid (0.4-2.0) mmol/L Calcium 8.0 L (8.5-10.1) mg/dL Magnesium (1.8-2.4) mg/dL Total Bilirubin (0.2-1.0) mg/dL Direct Bilirubin (0.0-0.2) mg/dL Indirect Bilirubin AST (15-37) U/L ALT (12-78) U/L Alkaline Phosphatase (46-116) U/L Total Protein (6.4-8.2) g/dL Albumin (3.4-5.0) g/dL Globulin (2.3-3.5) g/dL Albumin/Globulin Ratio (1.2-2.2) Urine Color (YELLOW) Urine Appearance (CLEAR) Urine pH (5.0-8.0) Ur Specific [place] (1.008-1.030) Urine Protein (NEGATIVE) mg/dL Urine Glucose (UA) (NEGATIVE) mg/dL Urine Ketones (NEGATIVE) mg/dL Urine Occult Blood (NEGATIVE) Urine Nitrite (NEGATIVE) Urine Bilirubin (NEGATIVE) Urine Urobilinogen (0.2-1.0) EU/dL Ur Leukocyte Esterase (NEGATIVE) Urine RBC (0-5) Urine WBC (0-5) Ur Epithelial Cells Amorphous Sediment Urine Bacteria Urine Mucus Salicylates 0.7 L (2.0-20.0) mg/dL SARS CoV-2 RNA Rapid APTY 10/02/21 10/02/21 10/02/21 Range/Units 16:25 16:25 16:25 WBC (4.5-11.0) K/uL RBC (4.30-5.90) M/uL Hgb (12.0-15.0) g/dL Hct (40.0-54.0) % MCV (80-98) fL MCH (27-31) pg MCHC (32-36) % Plt Count (150-400) K/uL VBG pH (7.350-7.450) Sodium (140-148) mmol/L Potassium (3.6-5.2) mmol/L Chloride (100-108) mmol/L Carbon Dioxide (21-32) mmol/L Anion Gap (5.0-14.0) mmol/L BUN (7-18) mg/dL Creatinine (0.8-1.3) mg/dL Est Cr Clr Drug Dosing mL/min Estimated GFR (MDRD) (>60) Glucose (74-106) mg/dL Lactic Acid 5.1 H (0.4-2.0) mmol/L Calcium (8.5-10.1) mg/dL Magnesium 0.8 L (1.8-2.4) mg/dL Total Bilirubin 0.4 D (0.2-1.0) mg/dL Direct Bilirubin 0.14 (0.0-0.2) mg/dL Indirect Bilirubin 0.26 AST 28 D (15-37) U/L ALT 37 (12-78) U/L Alkaline Phosphatase 53 (46-116) U/L Total Protein 6.9 (6.4-8.2) g/dL Albumin 4.1 (3.4-5.0) g/dL Globulin 2.8 (2.3-3.5) g/dL Albumin/Globulin Ratio 1.5 (1.2-2.2) Urine Color (YELLOW) Urine Appearance (CLEAR) Urine pH (5.0-8.0) Ur Specific [place] (1.008-1.030) Urine Protein (NEGATIVE) mg/dL Urine Glucose (UA) (NEGATIVE) mg/dL Urine Ketones (NEGATIVE) mg/dL Urine Occult Blood (NEGATIVE) Urine Nitrite (NEGATIVE) Urine Bilirubin (NEGATIVE) Urine Urobilinogen (0.2-1.0) EU/dL Ur Leukocyte Esterase (NEGATIVE) Urine RBC (0-5) Urine WBC (0-5) Ur Epithelial Cells Amorphous Sediment Urine Bacteria Urine Mucus Salicylates (2.0-20.0) mg/dL SARS CoV-2 RNA Rapid PATY 10/02/21 10/02/21 10/02/21 Range/Units 16:36 17:31 18:35 WBC (4.5-11.0) K/uL RBC (4.30-5.90) M/uL Hgb (12.0-15.0) g/dL Hct (40.0-54.0) % MCV (80-98) fL MCH (27-31) pg MCHC (32-36) % Plt Count (150-400) K/uL VBG pH 7.585 H (7.350-7.450) Sodium (140-148) mmol/L Potassium (3.6-5.2) mmol/L Chloride (100-108) mmol/L Carbon Dioxide (21-32) mmol/L Anion Gap (5.0-14.0) mmol/L BUN (7-18) mg/dL Creatinine (0.8-1.3) mg/dL Est Cr Clr Drug Dosing mL/min Estimated GFR (MDRD) (>60) Glucose (74-106) mg/dL Lactic Acid (0.4-2.0) mmol/L Calcium (8.5-10.1) mg/dL Magnesium (1.8-2.4) mg/dL Total Bilirubin (0.2-1.0) mg/dL Direct Bilirubin (0.0-0.2) mg/dL Indirect Bilirubin AST (15-37) U/L ALT (12-78) U/L Alkaline Phosphatase (46-116) U/L Total Protein (6.4-8.2) g/dL Albumin (3.4-5.0) g/dL Globulin (2.3-3.5) g/dL Albumin/Globulin Ratio (1.2-2.2) Urine Color Yellow (YELLOW) Urine Appearance Clear (CLEAR) Urine pH 7.0 (5.0-8.0) Ur Specific [place] 1.020 (1.008-1.030) Urine Protein Negative (NEGATIVE) mg/dL Urine Glucose (UA) Negative (NEGATIVE) mg/dL Urine Ketones Trace H (NEGATIVE) mg/dL Urine Occult Blood Negative (NEGATIVE) Urine Nitrite Negative (NEGATIVE) Urine Bilirubin Negative (NEGATIVE) Urine Urobilinogen 0.2 (0.2-1.0) EU/dL Ur Leukocyte Esterase Negative (NEGATIVE) Urine RBC Not seen (0-5) Urine WBC Not seen (0-5) Ur Epithelial Cells Rare Amorphous Sediment Not seen Urine Bacteria Not seen Urine Mucus Not seen Salicylates (2.0-20.0) mg/dL SARS CoV-2 RNA Rapid PATY Negative 10/02/21 10/02/21 10/03/21 Range/Units 21:03 21:03 01:11 WBC (4.5-11.0) K/uL RBC (4.30-5.90) M/uL Hgb (12.0-15.0) g/dL Hct (40.0-54.0) % MCV (80-98) fL MCH (27-31) pg MCHC (32-36) % Plt Count (150-400) K/uL VBG pH (7.350-7.450) Sodium 126 L 132 L (140-148) mmol/L Potassium (3.6-5.2) mmol/L Chloride (100-108) mmol/L Carbon Dioxide (21-32) mmol/L Anion Gap (5.0-14.0) mmol/L BUN (7-18) mg/dL Creatinine (0.8-1.3) mg/dL Est Cr Clr Drug Dosing mL/min Estimated GFR (MDRD) (>60) Glucose (74-106) mg/dL Lactic Acid 1.0 (0.4-2.0) mmol/L Calcium (8.5-10.1) mg/dL Magnesium (1.8-2.4) mg/dL Total Bilirubin (0.2-1.0) mg/dL Direct Bilirubin (0.0-0.2) mg/dL Indirect Bilirubin AST (15-37) U/L ALT (12-78) U/L Alkaline Phosphatase (46-116) U/L Total Protein (6.4-8.2) g/dL Albumin (3.4-5.0) g/dL Globulin (2.3-3.5) g/dL Albumin/Globulin Ratio (1.2-2.2) Urine Color (YELLOW) Urine Appearance (CLEAR) Urine pH (5.0-8.0) Ur Specific [place] (1.008-1.030) Urine Protein (NEGATIVE) mg/dL Urine Glucose (UA) (NEGATIVE) mg/dL Urine Ketones (NEGATIVE) mg/dL Urine Occult Blood (NEGATIVE) Urine Nitrite (NEGATIVE) Urine Bilirubin (NEGATIVE) Urine Urobilinogen (0.2-1.0) EU/dL Ur Leukocyte Esterase (NEGATIVE) Urine RBC (0-5) Urine WBC (0-5) Ur Epithelial Cells Amorphous Sediment Urine Bacteria Urine Mucus Salicylates (2.0-20.0) mg/dL SARS CoV-2 RNA Rapid PATY 10/03/21 Range/Units 06:05 WBC (4.5-11.0) K/uL RBC (4.30-5.90) M/uL Hgb (12.0-15.0) g/dL Hct (40.0-54.0) % MCV (80-98) fL MCH (27-31) pg MCHC (32-36) % Plt Count (150-400) K/uL VBG pH (7.350-7.450) Sodium 134 L (140-148) mmol/L Potassium 4.4 (3.6-5.2) mmol/L Chloride 100 (100-108) mmol/L Carbon Dioxide 27 (21-32) mmol/L Anion Gap 11.4 (5.0-14.0) mmol/L BUN 5 L (7-18) mg/dL Creatinine 0.7 L (0.8-1.3) mg/dL Est Cr Clr Drug Dosing 133.25 mL/min Estimated GFR (MDRD) > 60 (>60) Glucose 101 (74-106) mg/dL Lactic Acid (0.4-2.0) mmol/L Calcium 9.0 (8.5-10.1) mg/dL Magnesium (1.8-2.4) mg/dL Total Bilirubin (0.2-1.0) mg/dL Direct Bilirubin (0.0-0.2) mg/dL Indirect Bilirubin AST (15-37) U/L ALT (12-78) U/L Alkaline Phosphatase (46-116) U/L Total Protein (6.4-8.2) g/dL Albumin (3.4-5.0) g/dL Globulin (2.3-3.5) g/dL Albumin/Globulin Ratio (1.2-2.2) Urine Color (YELLOW) Urine Appearance (CLEAR) Urine pH (5.0-8.0) Ur Specific [place] (1.008-1.030) Urine Protein (NEGATIVE) mg/dL Urine Glucose (UA) (NEGATIVE) mg/dL Urine Ketones (NEGATIVE) mg/dL Urine Occult Blood (NEGATIVE) Urine Nitrite (NEGATIVE) Urine Bilirubin (NEGATIVE) Urine Urobilinogen (0.2-1.0) EU/dL Ur Leukocyte Esterase (NEGATIVE) Urine RBC (0-5) Urine WBC (0-5) Ur Epithelial Cells Amorphous Sediment Urine Bacteria Urine Mucus Salicylates (2.0-20.0) mg/dL SARS CoV-2 RNA Rapid PATY Result Diagrams: 10/02/21 16:25 10/03/21 06:05 Sepsis Event Note - Evaluation Sepsis Screening Result: No Definite Risk - Focused Exam Vital Signs: Vital Signs Temp Pulse Resp BP Pulse Ox 10/03/21 08:00 36.6 C 79 14 111/68 99 10/03/21 06:00 16 109/58 L 96 10/03/21 04:00 18 90/53 L 95 10/03/21 02:00 36.5 C 93 12 95/55 L 100 10/03/21 00:00 15 107/68 10/02/21 22:00 12 101/63 92 L - Problem List & Annotations (1) Hyponatremia SNOMED Code(s): 68466183 Code(s): E87.1 - HYPO-OSMOLALITY AND HYPONATREMIA Status: Acute Current Visit: Yes (2) Metabolic acidosis SNOMED Code(s): 49530958 Code(s): E87.2 - ACIDOSIS Status: Acute Current Visit: Yes (3) Seizures SNOMED Code(s): 51512253 Code(s): R56.9 - UNSPECIFIED CONVULSIONS Status: Acute Current Visit: Yes (4) Alcohol dependence SNOMED Code(s): 57203125 Code(s): F10.20 - ALCOHOL DEPENDENCE, UNCOMPLICATED Status: Chronic Current Visit: Yes Qualifiers: Substance use status: unspecified alcohol-induced disorder Qualified Code(s): F10.29 - Alcohol dependence with unspecified alcohol-induced disorder - Problem List Review Problem List Initiated/Reviewed/Updated: Yes - My Orders Last 24 Hours: My Active Orders 10/02/21 Dinner Regular Diet [DIET] 10/02/21 18:25 Resuscitation Status Routine 10/02/21 19:40 Acetaminophen [TylenoL] 650 mg PO Q4H PRN Docusate Sodium/Sennosides [Senna Plus] 1 tab PO BID PRN LORazepam [Ativan] 0.5 mg IVPUSH Q4H PRN LORazepam [Ativan] 2 mg IVPUSH Q1H PRN Magnesium Hydroxide [Milk of Magnesia] 30 ml PO Q12H PRN Ondansetron [Zofran ODT] 4 mg PO Q6H PRN Ondansetron [Zofran] 4 mg IV Q6H PRN Sodium Chloride 0.9% [Normal Saline] 1,000 ml IV ASDIRECTED oxyCODONE 5 - 10 mg PO Q4H PRN 10/02/21 19:40 Patient Status [ADT] Routine Antiembolic Devices [RC] .Routine Bedrest Bedside Commode [RC] ASDIRECTED Cardiac Monitoring [RC] Q6H Intake and Output [RC] QSHIFT Notify Provider Vital Signs [RC] ASDIRECTED Oxygen Therapy [RC] PRN Pulse Oximetry [RC] CONTINUOUS VTE/DVT Education [RC] Per Unit Routine Vital Signs [RC] Q2HR Seizure Precautions [OM.PC] Routine Sequential Compression Device [OM.PC] Routine 10/03/21 04:00 Magnesium Sulfate/Water [Magnesium Sulfate in Water 2 GM/50 ML] 2 gm Premix Bag 1 bag IV Q6H 10/03/21 06:00 levETIRAcetam in NaCl (iso-os) [levETIRAcetam in NaCl (Iso-Os)] 100 ml IV Q12H 10/03/21 09:55 Convert IV to Saline Lock [OM.PC] Routine - Plan Plan:: ASSESSMENT AND PLAN - Severe hyponatremia-suspect SSRI as cause. Sodium level has normalized. Seizure activity has resolved. Doing well today. -Recheck BMP in the morning -Discontinue SSRI permanently Anion gap metabolic acidosis-probably related to the seizures and lactic acidosis. This has resolved. Seizures-probably secondary to low sodium. No recurrence since sodium has normalized. -Seizure precautions -Discontinue Keppra Alcohol dependence-recent detox and partial treatment at [facility]. He is interested in additional alcohol treatment. -Planning discharge to treatment facility in [place] tomorrow Maintenance issues - -DVT prophylaxis-mechanical -GI prophylaxis-not indicated -Nutrition-regular Disposition -I anticipate discharge to treatment center in the morning Kayode Barry M.D.
[2021-10-04 07:45] VITALS: BP 130/82; PULSE 60
--- NOTE | 2021-10-04 08:10 | PCM.DCSUM1 ---
Discharge Summary - Hospital Course Brief History: 46-year-old male with history of alcohol dependence who presented from [facility] with episodes of shaking and confusion. He was admitted for management of severe hyponatremia and seizures thought secondary to the hyponatremia. Diagnosis: Stroke: No - Discharge Data Discharge Date: 10/04/21 Discharge Disposition: DC/Tfer to Inpt Rehab Fac 62 Condition: Good - Referral to Home Health Primary Care Physician: PCP None - Discharge Diagnosis/Problem(s) (1) Hyponatremia SNOMED Code(s): 79056124 ICD Code: E87.1 - HYPO-OSMOLALITY AND HYPONATREMIA Status: Acute (2) Metabolic acidosis SNOMED Code(s): 09592486 ICD Code: E87.2 - ACIDOSIS Status: Acute (3) Seizures SNOMED Code(s): 29852471 ICD Code: R56.9 - UNSPECIFIED CONVULSIONS Status: Acute (4) Alcohol dependence SNOMED Code(s): 59912983 ICD Code: F10.20 - ALCOHOL DEPENDENCE, UNCOMPLICATED Status: Chronic Qualifiers: Substance use status: unspecified alcohol-induced disorder Qualified Code(s): F10.29 - Alcohol dependence with unspecified alcohol-induced disorder - Patient Summary/Data Hospital Course: Deja presented to the emergency room with episodes of shaking and confusion. He had been at [facility] receiving outpatient treatment for alcohol dependence. He had completed his detox about 1 week prior to presenting to the emergency room. Work-up in the emergency room revealed evidence for severe hyponatremia. At the time of presentation they thought maybe this was alcohol so he did receive some lorazepam but did not have any change in his shaking. At the time of my evaluation I was suspicious for seizure given the tonic-clonic movements of upper and lower extremities but especially the lower extremities. He received an urgent dose of Keppra and almost immediately after the medication was infused his tremors decreased significantly and eventually stopped. For the sodium of 119 and seizures he did receive 1 bolus of hypertonic saline. Serial sodium levels were started after he was admitted to the intensive care unit. His sodium level steadily donny throughout the night and did not require any additional treatment. His sodium level donny about 12 points over the next 24hours. He did not have any more seizures. Symptomatically he was feeling much better. I did stop his Keppra after 2 doses. I am a little suspicious that his hyponatremia is related to his SSRI that was restarted about 1 week prior to presentation and onset of his symptoms. No other obvious cause was identified. I encouraged him to stop taking this medication permanently. He does continue to be interested in treatment for his alcohol dependence. We were able to find him placement at the [facility] and he will be transferred there for additional alcohol treatment. He is in stable condition and ready for discharge. - Patient Instructions Diet: Regular Diet as Tolerated Activity: As Tolerated Showering/Bathing: May Shower Other/Special Instructions: 1. Discharge to alcohol treatment facility in [place]. 2. Discontinue SSRI permanently with concern that it caused the hyponatremia - Discharge Plan *PRESCRIPTION DRUG MONITORING PROGRAM REVIEWED*: Not Applicable *COPY OF PRESCRIPTION DRUG MONITORING REPORT IN PATIENT TYREE: Not Applicable Home Medications: Home Meds lisinopriL [Lisinopril] 20 mg PO DAILY 10/02/21 [History] Oxygen Therapy Mode: Room Air Patient Handouts: Fall Prevention in the Home, Adult, [id number], Hyponatremia, [id number] - Discharge Summary/Plan Comment DC Time >30 min.: No Total # of Minutes for Discharge Time: 20 - Patient Data Vitals - Most Recent: Last Vital Signs Temp 36.6 C 10/04/21 07:44 Pulse 60 10/04/21 07:44 Resp 12 10/04/21 07:44 BP 130/82 10/04/21 07:44 Pulse Ox 98 10/04/21 07:44 Weight - Most Recent: 80.739 kg I&O - Last 24 hours: Intake & Output 10/03/21 10/04/21 10/04/21 22:59 06:59 14:59 Intake Total 50 50 Output Total 2050 1300 Balance -2000 -1250 Med Orders - Current: Current Medications Acetaminophen (Acetaminophen 325 Mg Tab) 650 mg PO Q4H PRN PRN Reason: Pain (Mild 1-3)/fever Last Admin: 10/03/21 09:20 Dose: 650 mg Documented by: Lorazepam (Lorazepam 2 Mg/Ml Sdv) 0.5 mg IVPUSH Q4H PRN PRN Reason: Nausea/Vomiting Lorazepam (Lorazepam 2 Mg/Ml Sdv) 2 mg IVPUSH Q1H PRN PRN Reason: Seizures Magnesium Hydroxide (Magnesium Hydroxide 400 Mg/5 Ml Susp 30 Ml Cup) 30 ml PO Q12H PRN PRN Reason: Constipation Ondansetron HCl (Ondansetron 4 Mg/2 Ml Sdv) 4 mg IV Q6H PRN PRN Reason: Nausea/Vomiting Ondansetron HCl (Ondansetron 4 Mg Tab.Dis) 4 mg PO Q6H PRN PRN Reason: Nausea able to take PO Oxycodone HCl (Oxycodone 5 Mg Tab) 5 - 10 mg PO Q4H PRN PRN Reason: Pain Senna/Docusate Sodium (Docusate Sodium/Sennosides 50-8.6 Mg Tab) 1 tab PO BID PRN PRN Reason: Constipation Discontinued Medications Sodium Chloride (Normal Saline) 1,000 mls @ 1,000 mls/hr IV .BOLUS ONE Stop: 10/02/21 17:47 Last Admin: 10/02/21 17:05 Dose: 1,000 mls/hr Documented by: Calcium Gluconate 2 gm/ Sodium (Chloride) 120 mls @ 100 mls/hr IV ONETIME ONE Stop: 10/02/21 18:02 Last Admin: 10/02/21 17:27 Dose: 100 mls/hr Documented by: Magnesium Sulfate 2 gm/ Premix 50 mls @ 25 mls/hr IV ONETIME ONE Stop: 10/02/21 19:04 Last Admin: 10/02/21 19:51 Dose: 25 mls/hr Documented by: Levetiracetam 1,000 mg/ Sodium (Chloride) 110 mls @ 400 mls/hr IV ONETIME ONE Stop: 10/02/21 17:55 Last Admin: 10/02/21 17:52 Dose: 400 mls/hr Documented by: Sodium Chloride (Sodium Chloride 3%) 100 mls @ 200 mls/hr IV ASDIRECTED LUPIS Last Admin: 10/02/21 18:16 Dose: 200 mls/hr Documented by: Sodium Chloride (Normal Saline) 1,000 mls @ 15 mls/hr IV ASDIRECTED LUPIS Levetiracetam 1 mg/ Sodium (Chloride) 100.01 mls @ 400 mls/hr IV Q12H LUPIS Magnesium Sulfate 2 gm/ Premix 50 mls @ 25 mls/hr IV Q6H [facility] Stop: 10/03/21 23:59 Last Admin: 10/03/21 21:00 Dose: 25 mls/hr Documented by: Levetiracetam (Levetiracetam In Nacl (Iso-Os)) 100 mls @ 400 mls/hr IV Q12H LUPIS Last Admin: 10/03/21 06:27 Dose: 400 mls/hr Documented by: Lorazepam (Lorazepam 1 Mg Tab) 1 mg PO ONETIME ONE Stop: 10/02/21 15:51 Last Admin: 10/02/21 15:57 Dose: 1 mg Documented by: Lorazepam (Lorazepam 1 Mg Tab) 1 mg PO ONETIME ONE Stop: 10/02/21 16:14 Last Admin: 10/02/21 16:17 Dose: 1 mg Documented by: Lorazepam (Lorazepam 1 Mg Tab) 2 mg PO ONETIME ONE Stop: 10/02/21 16:38 Last Admin: 10/02/21 16:45 Dose: 2 mg Documented by: Magnesium Oxide (Magnesium Oxide 400 Mg Tab) 800 mg PO ONETIME ONE Stop: 10/02/21 17:05 Ondansetron HCl (Ondansetron 4 Mg Tab.Dis) 4 mg PO ONETIME ONE Stop: 10/02/21 16:14 Last Admin: 10/02/21 16:17 Dose: 4 mg Documented by: Potassium Chloride (Potassium Chloride 20 Meq Tab.Er) 20 meq PO ONETIME ONE Stop: 10/02/21 17:06
== END 2021-10-04 08:00 | DRG 641 ==
LOC: JP.ED 15:45 → JP.ICU 18:24
PROVIDERS: ADMIT Internal Medicine; ATTEND Internal Medicine
DX: E87.1 Hypo-osmolality and hyponatremia (principal); F10.29 Alcohol dependence with unspecified alcohol-induced disorder; E87.2 Acidosis; R56.9 Unspecified convulsions; K21.9 Gastro-esophageal reflux disease without esophagitis; G89.29 Other chronic pain; M54.9 Dorsalgia, unspecified; E03.9 Hypothyroidism, unspecified; Z79.899 Other long term (current) drug therapy; T43.205A Adverse effect of unspecified antidepressants, initial encounter
CPT/HCPCS: 36415; 80048; 80076; 80179; 81001; 82800; 83605; 83735; 84295; 85027; A9270-GY; J0610; J1953; J3475; J7030; J7131; U0002

== ENCOUNTER 2023-01-19 03:28 | Emergency (ER) | payer MEDICAID ==
[2023-01-19] MEDS ORDERED: Sodium Chloride 0.9% 10 ML Syringe FLUSH PRN (04:13)
[2023-01-19] MEDS ORDERED: Ketamine 500 MG/5 ML MDV IM PRN (04:16)
[2023-01-19] MEDS ORDERED: LORazepam 2 MG/ML SDV IM ONE ×2 (04:18→16:16)
[2023-01-19] MEDS ORDERED: diphenhydrAMINE 50 MG/ML SDV IM ONE (04:18)
[2023-01-19] MEDS ORDERED: Haloperidol Lactate 5 MG/ML SDV IM ONE (04:19)
[2023-01-19] MEDS ORDERED: LORazepam 2 MG/ML SDV IVPUSH PRN (04:56)
[2023-01-19 05:08] LABS: ESTIMATED GFR 82 mL/min (>60)
[2023-01-19] MEDS ORDERED: Thiamine 100 MG Tab PO ONE (05:11)
[2023-01-19] MEDS ORDERED: Multivitamins with Iron/Calcium/Folic Acid/Minerals Tab PO ONE (05:12)
[2023-01-19] MEDS ORDERED: Folic Acid 1 MG Tab PO ONE (05:12)
[2023-01-19] MEDS ORDERED: Potassium Chloride 20 MEQ Tab.ER PO ONE (05:18)
[2023-01-19] MEDS ORDERED: Magnesium Sulfate/Water 2 GM in Premix Bag 1 BAG IV ONE (05:18)
[2023-01-19] MEDS ORDERED: Escitalopram 10 MG Tab PO ONE (05:47)
[2023-01-19] MEDS ORDERED: Metoprolol Tartrate 25 MG Tab PO ONE (05:47)
[2023-01-19] MEDS ORDERED: Sodium Chloride 0.9% 1,000 ML IV ONE (05:49)
[2023-01-19] MEDS ORDERED: Naltrexone 50 MG Tab PO ONE (05:49)
[2023-01-19] MEDS: Lisinopril 20 MG Tab PO SCH (07:33)
[2023-01-19] MEDS: Gabapentin 300 MG Cap PO SCH ×2 (16:34→19:55)
[2023-01-19] MEDS: LORazepam 1 MG Tab PO SCH ×2 (19:55→22:38)
[2023-01-20] MEDS: Lisinopril 20 MG Tab PO SCH ×2 (02:23→08:46)
[2023-01-20] MEDS: Gabapentin 300 MG Cap PO SCH ×3 (08:46→20:49)
[2023-01-21] MEDS: Gabapentin 300 MG Cap PO SCH (08:41)
[2023-01-21] MEDS: Lisinopril 20 MG Tab PO SCH (08:41)
[2023-01-21 08:42] VITALS: BP 131/94
[2023-01-21 08:54] VITALS: PULSE 93
== END 2023-01-21 09:33 | disposition home or self-care (01) ==
LOC: JP.ED 03:28
DX: F10.231 Alcohol dependence with withdrawal delirium (principal); R03.0 Elevated blood-pressure reading, without diagnosis of hypertension; E83.42 Hypomagnesemia; D69.59 Other secondary thrombocytopenia; K70.10 Alcoholic hepatitis without ascites; T50.995A Adverse effect of other drugs, medicaments and biological substances, initial encounter; E87.1 Hypo-osmolality and hyponatremia; E87.6 Hypokalemia; J44.9 Chronic obstructive pulmonary disease, unspecified; M79.81 Nontraumatic hematoma of soft tissue; Z88.8 Allergy status to other drugs, medicaments and biological substances; Z79.82 Long term (current) use of aspirin; Z79.899 Other long term (current) drug therapy
CPT/HCPCS: 36415; 80053; 80305-QW; 80307; 82803; 83605; 83735; 84100; 84145; 84439; 84443; 85025; 86140; 96365; 96366; 96372; 99284; 99285-25; A9270-GY; J1630; J2060; J3475; J3490; J7030; U0002